=== PATIENT | male | born 1945 | race Caucasian/White ===

== ENCOUNTER 2021-01-21 09:21 | Outpatient (CLI) | payer MEDICARE ==
[2021-01-21 10:20] LABS: Estimated GFR-MDRD - POC Greater than 90
== END 2021-01-21 09:22 | disposition home or self-care (01) ==
LOC: CSHCT 09:21
PROVIDERS: ATTEND Thoracic Surgery (Cardiothoracic Vascular Surgery)
DX: I71.4 Abdominal aortic aneurysm, without rupture (principal); I97.89 Other postprocedural complications and disorders of the circulatory system, not elsewhere classified
CPT/HCPCS: 74175; 82565